=== PATIENT | male | born 1995 | race African-American/Black ===

== ENCOUNTER 2020-11-22 15:39 | Inpatient (IN) | payer MEDICAID ==
[~2020-11-22] VITALS: Ht 190.5 cm; Wt 79.4 kg
[~2020-11-22 15:39] MED LIST: BENZ1TAB10 PO; DIVA-112 PO; OLAN5TAB52 PO
[2020-11-22] MEDS ORDERED: HALOPERIDOL 5 MG TABLET PO ONE (17:45)
[2020-11-22] MEDS ORDERED: LORazepam 1 MG TABLET PO ONE (17:45)
[2020-11-22 18:22] LABS: BASOPHILS % (AUTO) 0.5 % (0.0-2.0); EOSINOPHILS % (AUTO) 1.7 % (1.0-6.0); HEMATOCRIT 38.1 % (41-53); HEMOGLOBIN 12.8 g/dL (13.5-17.5); LYMPHOCYTES # (AUTO) 1.3 K/uL (1.0-4.8); LYMPHOCYTES % (AUTO) 19.7 % (22.0-44.0); MEAN CORPUSCULAR HEMOGLOBIN 29.1 pg (26.0-34.0); MEAN CORPUSCULAR HGB CONC 33.7 G/dL (31.0-37.0); MEAN CORPUSCULAR VOLUME 86 fL (80-100); MONOCYTES # (AUTO) 1.3 K/uL (0.1-1.0); MONOCYTES % (AUTO) 19.3 % (2.0-9.0); NEUTROPHILS % (AUTO) 58.8 % (40.0-70.0); PLATELET COUNT (AUTO) 226 K/uL (150-450); RED BLOOD CELL COUNT(AUTO) 4.42 MIL/uL (4.50-5.90); RED CELL DISTRIBUTION WIDTH 14.2 % (11.5-14.5)
[2020-11-22 18:24] LABS: COVID AG,FIA SOURCE NASOPHARYNGEAL
[2020-11-22 18:41] LABS: ANION GAP 6 mmol/L (8-16); CALCIUM, TOTAL 8.9 mg/dL (8.8-10.5); CARBON DIOXIDE 28 mmol/L (22-29); CHLORIDE 99 mmol/L (98-107); CREATININE 1.07 mg/dL (0.60-1.30); GLOMERULAR FILTR. RATE CALC > 60 mL/min (>60); GLUCOSE,RANDOM 105 mg/dL (70-110); POTASSIUM 3.5 mmol/L (3.5-5.1); SODIUM SERUM 133 mmol/L (136-145); UREA NITROGEN, BLOOD 20 mg/dL (7-18)
[2020-11-22 18:47] LABS: ALANINE AMINOTRANSFERASE 39 U/L (12-78); ALBUMIN 3.7 g/dL (3.4-5.0); ALKALINE PHOSPHATASE 88 U/L (46-116); ASPARTATE AMINOTRANSFERASE 88 U/L (15-37); BILIRUBIN,TOTAL 0.9 mg/dL (0.1-1.0); TOTAL PROTEIN, SERUM 7.7 g/dL (6.4-8.2); VALPROIC ACID 6 mcg/mL (50-100)
[2020-11-22 19:32] LABS: AMPHET/METH SCREEN,URINE NEGATIVE (NEGATIVE); BARBITURATE SCREEN, URINE NEGATIVE (NEGATIVE); BENZODIAZEPINES SCREEN,URINE NEGATIVE (NEGATIVE); CANNABINOID SCREEN,URINE POSITIVE (NEGATIVE); COCAINE SCREEN,URINE NEGATIVE (NEGATIVE); METHADONE SCREEN, URINE NEGATIVE (NEGATIVE); OPIATE SCREEN,URINE NEGATIVE (NEGATIVE)
[2020-11-22 19:33] LABS: PHENCYCLIDINE SCREEN,URINE NEGATIVE (NEGATIVE)
[2020-11-23 02:24] VITALS: BP 133/85
[2020-11-23] MEDS ORDERED: DiphenhydrAMINE HCL 50 MG/ML VIAL IM ONE ×2 (07:30→16:30)
[2020-11-23] MEDS ORDERED: LORazepam 2 MG/ML VIAL IM ONE ×2 (07:30→16:30)
[2020-11-23] MEDS ORDERED: HALOPERIDOL LACTATE 5 MG/ML VIAL IM ONE ×2 (07:30→16:30)
[2020-11-23] MEDS ORDERED: HydrOXYzine PAMOATE 50 MG CAPSULE PO PRN (07:45)
[2020-11-23] MEDS ORDERED: TUBERCULIN, PURIFIED PROTEIN DERIVATIVE 5 TU/0.1 ML SYRINGE ID ONE (07:45)
[2020-11-23] MEDS ORDERED: PROMETHAZINE HCL 25 MG TABLET PO PRN (07:45)
[2020-11-23] MEDS ORDERED: MAGNESIUM HYDROXIDE SUSPENSION 30 ML UDCUP PO PRN (07:45)
[2020-11-23] MEDS ORDERED: ACETAMINOPHEN 325 MG TABLET PO PRN (07:45)
[2020-11-23] MEDS ORDERED: LOPERAMIDE HCL 2 MG CAPSULE PO PRN (07:45)
[2020-11-23] MEDS ORDERED: MAG HYDROX/AL HYDROX/SIMETH ES 30 ML SUSPENSION UDCUP PO PRN (07:45)
[2020-11-23] MEDS ORDERED: GuaiFENesin/D-METHORPHAN [SUGAR-FREE] 200-20MG/10 ML SYRUP UDCUP PO PRN (07:45)
[2020-11-23] MEDS: LORazepam 2 MG TABLET PO PRN (08:00)
[2020-11-23] MEDS: MULTIVITAMINS WITH MINERALS, THERAPEUTIC TABLET PO SCH (09:06)
[2020-11-23] MEDS: FOLIC ACID 1 MG TABLET PO SCH (09:06)
[2020-11-23] MEDS: OLANZapine 5 MG RAPDIS TABLET PO SCH ×3 (09:06→17:00)
[2020-11-23] MEDS: NALTREXONE HCL 50 MG TABLET PO SCH (09:06)
[2020-11-23] MEDS: DIVALPROEX SODIUM 500 MG ER TABLET PO SCH ×3 (09:06→17:00)
[2020-11-23] MEDS: OMEGA-3/DHA/EPA/FISH OIL 1,000 MG CAPSULE PO SCH (09:06)
[2020-11-23] MEDS: THIAMINE 100 MG TABLET PO SCH ×2 (09:06→17:00)
[2020-11-23 16:15] VITALS: BP 150/88
[2020-11-23] MEDS: MELATONIN 5 MG TABLET PO SCH (21:12)
[2020-11-24 05:27] VITALS: BP 124/84
[2020-11-24 08:42] VITALS: BP 145/81
[2020-11-24] MEDS: DIVALPROEX SODIUM 500 MG ER TABLET PO SCH ×3 (08:55→17:25)
[2020-11-24] MEDS: OMEGA-3/DHA/EPA/FISH OIL 1,000 MG CAPSULE PO SCH (08:55)
[2020-11-24] MEDS: FOLIC ACID 1 MG TABLET PO SCH (08:55)
[2020-11-24] MEDS: THIAMINE 100 MG TABLET PO SCH ×2 (08:56→17:25)
[2020-11-24] MEDS: NALTREXONE HCL 50 MG TABLET PO SCH (08:56)
[2020-11-24] MEDS: MULTIVITAMINS WITH MINERALS, THERAPEUTIC TABLET PO SCH (08:56)
[2020-11-24] MEDS: OLANZapine 5 MG RAPDIS TABLET PO SCH ×3 (08:56→17:25)
[2020-11-24] MEDS ORDERED: HALOPERIDOL LACTATE 5 MG/ML VIAL IM ONE (11:00)
[2020-11-24] MEDS ORDERED: LORazepam 2 MG/ML VIAL IM ONE (11:00)
[2020-11-24] MEDS ORDERED: DiphenhydrAMINE HCL 50 MG/ML VIAL IM ONE (11:00)
[2020-11-24] MEDS ORDERED: PALIPERIDONE PALMITATE 234 MG/1.5 ML SYRINGE IM ONE (16:00)
[2020-11-24 16:14] VITALS: BP 122/80
[2020-11-24] MEDS: MELATONIN 5 MG TABLET PO SCH (19:08)
[2020-11-25] MEDS ORDERED: LORazepam 2 MG/ML VIAL IM ONE (08:00)
[2020-11-25] MEDS ORDERED: DiphenhydrAMINE HCL 50 MG/ML VIAL IM ONE (08:00)
[2020-11-25] MEDS ORDERED: HALOPERIDOL LACTATE 5 MG/ML VIAL IM ONE (08:00)
[2020-11-25] MEDS: NALTREXONE HCL 50 MG TABLET PO SCH (09:00)
[2020-11-25] MEDS: OMEGA-3/DHA/EPA/FISH OIL 1,000 MG CAPSULE PO SCH (09:00)
[2020-11-25] MEDS: OLANZapine 5 MG RAPDIS TABLET PO SCH ×4 (09:00→16:40)
[2020-11-25] MEDS: THIAMINE 100 MG TABLET PO SCH ×2 (09:00→16:40)
[2020-11-25] MEDS: MULTIVITAMINS WITH MINERALS, THERAPEUTIC TABLET PO SCH (09:00)
[2020-11-25] MEDS: DIVALPROEX SODIUM 500 MG ER TABLET PO SCH ×5 (09:00→20:35)
[2020-11-25] MEDS: FOLIC ACID 1 MG TABLET PO SCH (09:00)
[2020-11-25 09:49] VITALS: BP 155/97
[2020-11-25 16:19] VITALS: BP 134/79
[2020-11-25] MEDS: LORazepam 2 MG TABLET PO PRN ×2 (16:40→20:43)
[2020-11-25] MEDS: OLANZapine 5 MG RAPDIS TABLET PO PRN (16:40)
[2020-11-25] MEDS: MELATONIN 5 MG TABLET PO SCH (20:35)
[2020-11-25] MEDS: ZOLPIDEM TARTRATE 10 MG TABLET PO PRN (20:35)
[2020-11-25] MEDS: OLANZapine 10 MG RAPDIS TABLET PO SCH (20:37)
[2020-11-26 01:54] VITALS: BP 137/87
[2020-11-26 08:15] VITALS: BP 129/78
[2020-11-26] MEDS: THIAMINE 100 MG TABLET PO SCH ×2 (09:00→16:30)
[2020-11-26] MEDS: MULTIVITAMINS WITH MINERALS, THERAPEUTIC TABLET PO SCH (09:00)
[2020-11-26] MEDS: OMEGA-3/DHA/EPA/FISH OIL 1,000 MG CAPSULE PO SCH (09:00)
[2020-11-26] MEDS: FOLIC ACID 1 MG TABLET PO SCH (09:00)
[2020-11-26] MEDS: NALTREXONE HCL 50 MG TABLET PO SCH (09:00)
[2020-11-26] MEDS ORDERED: PALIPERIDONE PALMITATE 234 MG/1.5 ML SYRINGE IM ONE (15:45)
[2020-11-26] MEDS ORDERED: DiphenhydrAMINE HCL 50 MG/ML VIAL IM ONE (16:15)
[2020-11-26] MEDS ORDERED: HALOPERIDOL LACTATE 5 MG/ML VIAL IM ONE (16:15)
[2020-11-26] MEDS ORDERED: LORazepam 2 MG/ML VIAL IM ONE (16:15)
[2020-11-26 16:19] VITALS: BP 158/85
[2020-11-26 16:59] VITALS: BP 141/80
[2020-11-26] MEDS: DIVALPROEX SODIUM 500 MG ER TABLET PO SCH (20:36)
[2020-11-26] MEDS: OLANZapine 10 MG RAPDIS TABLET PO SCH (20:36)
[2020-11-26] MEDS: MELATONIN 5 MG TABLET PO SCH (20:36)
[2020-11-27] MEDS: NALTREXONE HCL 50 MG TABLET PO SCH (09:00)
[2020-11-27] MEDS: MULTIVITAMINS WITH MINERALS, THERAPEUTIC TABLET PO SCH (09:00)
[2020-11-27] MEDS: FOLIC ACID 1 MG TABLET PO SCH (09:00)
[2020-11-27] MEDS: THIAMINE 100 MG TABLET PO SCH ×2 (09:00→16:39)
[2020-11-27] MEDS: OMEGA-3/DHA/EPA/FISH OIL 1,000 MG CAPSULE PO SCH (09:00)
[2020-11-27 10:10] VITALS: BP 110/80
[2020-11-27] MEDS ORDERED: HALOPERIDOL LACTATE 5 MG/ML VIAL IM ONE (15:45)
[2020-11-27] MEDS ORDERED: LORazepam 2 MG/ML VIAL IM ONE (15:45)
[2020-11-27] MEDS ORDERED: DiphenhydrAMINE HCL 50 MG/ML VIAL IM ONE (15:45)
[2020-11-27] MEDS ORDERED: DiphenhydrAMINE HCL 50 MG/ML VIAL ONE (15:47)
[2020-11-27] MEDS ORDERED: HALOPERIDOL LACTATE 5 MG/ML VIAL ONE (15:47)
[2020-11-27] MEDS ORDERED: LORazepam 2 MG/ML VIAL ONE (15:47)
[2020-11-27] MEDS: DIVALPROEX SODIUM 500 MG ER TABLET PO SCH (19:45)
[2020-11-27] MEDS: MELATONIN 5 MG TABLET PO SCH (19:45)
[2020-11-27] MEDS: OLANZapine 10 MG RAPDIS TABLET PO SCH (19:46)
[2020-11-28 04:46] VITALS: BP 122/82
[2020-11-28] MEDS ORDERED: PALIPERIDONE PALMITATE 156 MG/ML SYRINGE IM ONE (09:00)
[2020-11-28] MEDS: THIAMINE 100 MG TABLET PO SCH ×2 (09:00→16:46)
[2020-11-28] MEDS: FOLIC ACID 1 MG TABLET PO SCH (09:00)
[2020-11-28] MEDS: NALTREXONE HCL 50 MG TABLET PO SCH (09:00)
[2020-11-28] MEDS: MULTIVITAMINS WITH MINERALS, THERAPEUTIC TABLET PO SCH (09:00)
[2020-11-28] MEDS: OMEGA-3/DHA/EPA/FISH OIL 1,000 MG CAPSULE PO SCH (09:00)
[2020-11-28 16:07] VITALS: BP 122/75
[2020-11-28] MEDS: OLANZapine 5 MG RAPDIS TABLET PO PRN (16:46)
[2020-11-28] MEDS: LORazepam 2 MG TABLET PO PRN ×2 (16:46→21:34)
[2020-11-28] MEDS: MELATONIN 5 MG TABLET PO SCH (21:33)
[2020-11-28] MEDS: OLANZapine 10 MG RAPDIS TABLET PO SCH (21:33)
[2020-11-28] MEDS: DIVALPROEX SODIUM 500 MG ER TABLET PO SCH (21:33)
[2020-11-28] MEDS: ZOLPIDEM TARTRATE 10 MG TABLET PO PRN (21:46)
[2020-11-29 04:00] VITALS: BP 123/67
[2020-11-29 08:17] VITALS: BP 128/88
[2020-11-29] MEDS: OMEGA-3/DHA/EPA/FISH OIL 1,000 MG CAPSULE PO SCH (08:57)
[2020-11-29] MEDS: FOLIC ACID 1 MG TABLET PO SCH (08:57)
[2020-11-29] MEDS: NALTREXONE HCL 50 MG TABLET PO SCH (08:58)
[2020-11-29] MEDS: MULTIVITAMINS WITH MINERALS, THERAPEUTIC TABLET PO SCH (08:58)
[2020-11-29] MEDS: THIAMINE 100 MG TABLET PO SCH ×2 (08:58→16:08)
[2020-11-29] MEDS ORDERED: MELA5TAB3 PO (15:30)
[2020-11-29] MEDS ORDERED: OMEG-135 PO (15:30)
[2020-11-29] MEDS ORDERED: NALT50TA PO (15:30)
[2020-11-29] MEDS ORDERED: OLAN10TA26 PO ×2 (15:30→17:28)
[2020-11-29] MEDS ORDERED: DIVA-80 PO ×3 (15:30→19:00)
[2020-11-29 16:10] VITALS: BP 127/78
[2020-11-29] MEDS ORDERED: MELA5TAB21 PO (17:29)
[2020-11-29] MEDS ORDERED: BENZ1TAB10 PO (19:00)
[2020-11-29] MEDS ORDERED: OLAN10TA74 PO (19:01)
[2020-11-30] MEDS ORDERED: PALIPERIDONE PALMITATE 156 MG/ML SYRINGE IM ONE (09:00)
== END 2020-11-29 19:05 | disposition home or self-care (01) | DRG 750 ==
LOC: EMS 15:39 → B3A 21:00
PROVIDERS: ADMIT Psychiatry & Neurology Psychiatry; ATTEND Psychiatry & Neurology Psychiatry
DX: F20.9 Schizophrenia, unspecified (principal); E87.1 Hypo-osmolality and hyponatremia; D64.9 Anemia, unspecified; F12.10 Cannabis abuse, uncomplicated; J44.9 Chronic obstructive pulmonary disease, unspecified; Z55.9 Problems related to education and literacy, unspecified; Z59.9 Problem related to housing and economic circumstances, unspecified; Z65.3 Problems related to other legal circumstances; Z20.822 Contact with and (suspected) exposure to COVID-19
CPT/HCPCS: 80053; 80164; 85025; 99285; A9575; G0480; J1200; J1630; J2060

== ENCOUNTER 2021-01-18 16:42 | Inpatient (IN) | payer SELFPAY ==
[~2021-01-18] VITALS: Ht 188 cm; Wt 84.0 kg
[~2021-01-18 16:42] MED LIST changes: -DIVA-112 PO; +DIVA-80 PO; +MELA5TAB21 PO; +OLAN10TA26 PO; +OLAN10TA74 PO; -OLAN5TAB52 PO
[2021-01-18] MEDS ORDERED: HALOPERIDOL LACTATE 5 MG/ML VIAL IM ONE ×2 (18:00→23:45)
[2021-01-18] MEDS ORDERED: LORazepam 2 MG/ML VIAL IM ONE ×2 (18:00→23:45)
[2021-01-18] MEDS ORDERED: DiphenhydrAMINE HCL 50 MG/ML VIAL IM ONE ×2 (18:00→23:45)
[2021-01-18 18:22] LABS: COVID AG,FIA SOURCE NASOPHARYNGEAL
[2021-01-18] MEDS ORDERED: PIPERACILLIN/TAZO 3.375 GM/D5W 50 ML IV ONE (19:00)
[2021-01-18] MEDS ORDERED: VANCOMYCIN HCL 1 GM/D5% WATER 200 ML IV ONE (19:00)
[2021-01-18] MEDS ORDERED: AZITHROMYCIN 500 MG/NS 250 ML IV ONE (19:00)
[2021-01-18 19:38] LABS: BASOPHILS % (AUTO) 0.3 % (0.0-2.0); EOSINOPHILS % (AUTO) 1.1 % (1.0-6.0); HEMATOCRIT 45.2 % (41-53); LYMPHOCYTES # (AUTO) 1.3 K/uL (1.0-4.8); LYMPHOCYTES % (AUTO) 21.1 % (22.0-44.0); MEAN CORPUSCULAR HEMOGLOBIN 29.1 pg (26.0-34.0); MEAN CORPUSCULAR HGB CONC 33.3 G/dL (31.0-37.0); MEAN CORPUSCULAR VOLUME 87 fL (80-100); MONOCYTES # (AUTO) 0.7 K/uL (0.1-1.0); MONOCYTES % (AUTO) 11.3 % (2.0-9.0); NEUTROPHILS # (AUTO) 4.1 K/uL (1.8-7.7); NEUTROPHILS % (AUTO) 66.2 % (40.0-70.0); PLATELET COUNT (AUTO) 262 K/uL (150-450); RED BLOOD CELL COUNT(AUTO) 5.17 MIL/uL (4.50-5.90); RED CELL DISTRIBUTION WIDTH 13.4 % (11.5-14.5)
[2021-01-18 20:05] LABS: ANION GAP 11 mmol/L (8-16); CALCIUM, TOTAL 9.3 mg/dL (8.8-10.5); CARBON DIOXIDE 28 mmol/L (22-29); CHLORIDE 102 mmol/L (98-107); CREATININE 1.16 mg/dL (0.60-1.30); GLOMERULAR FILTR. RATE CALC > 60 mL/min (>60); GLUCOSE,RANDOM 67 mg/dL (70-110); POTASSIUM 4.1 mmol/L (3.5-5.1); SODIUM SERUM 141 mmol/L (136-145); UREA NITROGEN, BLOOD 14 mg/dL (7-18)
[2021-01-18 20:11] LABS: ALANINE AMINOTRANSFERASE 42 U/L (12-78); ALBUMIN 4.2 g/dL (3.4-5.0); ALKALINE PHOSPHATASE 93 U/L (46-116); ASPARTATE AMINOTRANSFERASE 67 U/L (15-37); BILIRUBIN,TOTAL 0.7 mg/dL (0.1-1.0); TOTAL PROTEIN, SERUM 8.6 g/dL (6.4-8.2)
[2021-01-18 23:51] LABS: AMPHET/METH SCREEN,URINE NEGATIVE (NEGATIVE); BARBITURATE SCREEN, URINE NEGATIVE (NEGATIVE); BENZODIAZEPINES SCREEN,URINE NEGATIVE (NEGATIVE); CANNABINOID SCREEN,URINE POSITIVE (NEGATIVE); COCAINE SCREEN,URINE NEGATIVE (NEGATIVE); METHADONE SCREEN, URINE NEGATIVE (NEGATIVE); OPIATE SCREEN,URINE NEGATIVE (NEGATIVE)
[2021-01-18 23:56] LABS: PHENCYCLIDINE SCREEN,URINE NEGATIVE (NEGATIVE)
[2021-01-19] MEDS: LORazepam 2 MG TABLET PO PRN ×3 (00:58→20:16)
[2021-01-19] MEDS: ZOLPIDEM TARTRATE 10 MG TABLET PO PRN (00:58)
[2021-01-19] MEDS: QUEtiapine FUMARATE 100 MG TABLET PO PRN ×2 (07:38→19:06)
[2021-01-19 08:15] VITALS: BP 138/76
[2021-01-19] MEDS ORDERED: LOPERAMIDE HCL 2 MG CAPSULE PO PRN (08:30)
[2021-01-19] MEDS ORDERED: DOCUSATE SODIUM 100 MG CAPSULE PO PRN (08:30)
[2021-01-19] MEDS ORDERED: ONDANSETRON HCL 4 MG TABLET PO PRN (08:30)
[2021-01-19] MEDS ORDERED: PETROLATUM,WHITE 28 GM JELLY TP PRN (08:30)
[2021-01-19] MEDS ORDERED: CloNIDine HCL 0.1 MG TABLET PO PRN (08:30)
[2021-01-19] MEDS ORDERED: IBUPROFEN 400 MG TABLET PO PRN (08:30)
[2021-01-19] MEDS ORDERED: ACETAMINOPHEN 325 MG TABLET PO PRN (08:30)
[2021-01-19] MEDS ORDERED: GuaiFENesin/D-METHORPHAN [SUGAR-FREE] 200-20MG/10 ML SYRUP UDCUP PO PRN (08:30)
[2021-01-19] MEDS ORDERED: ALBUTEROL SULFATE HFA 90 MCG/PUFF 8 GM INHALER IH PRN (08:30)
[2021-01-19] MEDS ORDERED: MAG HYDROX/AL HYDROX/SIMETH ES 30 ML SUSPENSION UDCUP PO PRN (08:30)
[2021-01-19] MEDS ORDERED: MAGNESIUM HYDROXIDE SUSPENSION 30 ML UDCUP PO PRN (08:30)
[2021-01-19] MEDS ORDERED: NICOTINE 14 MG/24 HOUR PATCH TD PRN (08:30)
[2021-01-19] MEDS: OLANZapine 10 MG TABLET PO SCH ×2 (11:43→20:06)
[2021-01-19 14:00] LABS: CHOL/HDL RATIO 1.8 (4.2-7.3)
[2021-01-19] MEDS: DIVALPROEX SODIUM 250 MG ER TABLET PO SCH (20:06)
[2021-01-19] MEDS: MELATONIN 5 MG TABLET PO SCH (20:06)
[2021-01-20] MEDS: QUEtiapine FUMARATE 100 MG TABLET PO PRN ×2 (05:41→15:39)
[2021-01-20] MEDS: LORazepam 2 MG TABLET PO PRN ×3 (05:41→20:15)
[2021-01-20 08:11] VITALS: BP 119/78
[2021-01-20] MEDS: OLANZapine 10 MG TABLET PO SCH ×2 (09:10→20:15)
[2021-01-20] MEDS: DIVALPROEX SODIUM 250 MG ER TABLET PO SCH ×2 (09:11→20:14)
[2021-01-20 16:06] VITALS: BP 135/85
[2021-01-20] MEDS: MELATONIN 5 MG TABLET PO SCH (20:15)
[2021-01-21] MEDS: QUEtiapine FUMARATE 100 MG TABLET PO PRN (05:58)
[2021-01-21] MEDS: LORazepam 2 MG TABLET PO PRN ×2 (05:58→16:30)
[2021-01-21] MEDS: DIVALPROEX SODIUM 250 MG ER TABLET PO SCH ×2 (07:34→21:42)
[2021-01-21] MEDS: OLANZapine 10 MG TABLET PO SCH ×2 (07:34→21:59)
[2021-01-21 08:09] VITALS: BP 139/88
[2021-01-21] MEDS: MELATONIN 5 MG TABLET PO SCH (20:11)
[2021-01-21] MEDS: ZOLPIDEM TARTRATE 10 MG TABLET PO PRN (23:24)
[2021-01-22] MEDS: LORazepam 2 MG TABLET PO PRN (05:37)
[2021-01-22] MEDS: QUEtiapine FUMARATE 100 MG TABLET PO PRN (05:37)
[2021-01-22] MEDS: OLANZapine 10 MG TABLET PO SCH (07:33)
[2021-01-22] MEDS: DIVALPROEX SODIUM 250 MG ER TABLET PO SCH (07:33)
[2021-01-22 08:23] VITALS: BP 144/81
== END 2021-01-22 13:30 | disposition home or self-care (01) | DRG 885 ==
LOC: EMS 16:42 → 3EC 19:48
DX: F20.0 Paranoid schizophrenia (principal); F12.10 Cannabis abuse, uncomplicated; D64.9 Anemia, unspecified; G47.00 Insomnia, unspecified; Z79.899 Other long term (current) drug therapy; Z20.822 Contact with and (suspected) exposure to COVID-19; R03.0 Elevated blood-pressure reading, without diagnosis of hypertension
CPT/HCPCS: 80053; 80061; 85025; 99285; A9575; G0480; J1200; J1630; J2060; J3370

== ENCOUNTER 2021-02-08 14:24 | Emergency (ER) | payer MEDICAID ==
[~2021-02-08] VITALS: Ht 180.3 cm; Wt 81.8 kg
[~2021-02-08 14:24] MED LIST changes: -BENZ1TAB10 PO; -OLAN10TA26 PO
[2021-02-08 16:19] LABS: BASOPHILS % (AUTO) 0.3 % (0.0-2.0); EOSINOPHILS % (AUTO) 1.4 % (1.0-6.0); HEMATOCRIT 43.5 % (41-53); HEMOGLOBIN 14.6 g/dL (13.5-17.5); LYMPHOCYTES # (AUTO) 1.5 K/uL (1.0-4.8); LYMPHOCYTES % (AUTO) 24.3 % (22.0-44.0); MEAN CORPUSCULAR HEMOGLOBIN 28.4 pg (26.0-34.0); MEAN CORPUSCULAR HGB CONC 33.4 G/dL (31.0-37.0); MEAN CORPUSCULAR VOLUME 85 fL (80-100); MONOCYTES # (AUTO) 0.9 K/uL (0.1-1.0); MONOCYTES % (AUTO) 13.8 % (2.0-9.0); NEUTROPHILS # (AUTO) 3.8 K/uL (1.8-7.7); NEUTROPHILS % (AUTO) 60.2 % (40.0-70.0); PLATELET COUNT (AUTO) 302 K/uL (150-450); RED BLOOD CELL COUNT(AUTO) 5.12 MIL/uL (4.50-5.90); RED CELL DISTRIBUTION WIDTH 12.9 % (11.5-14.5)
[2021-02-08 16:20] LABS: COVID AG,FIA SOURCE NASOPHARYNGEAL
[2021-02-08 16:38] LABS: ANION GAP 9 mmol/L (8-16); CALCIUM, TOTAL 9.4 mg/dL (8.8-10.5); CARBON DIOXIDE 30 mmol/L (22-29); CHLORIDE 102 mmol/L (98-107); CREATININE 1.31 mg/dL (0.60-1.30); GLOMERULAR FILTR. RATE CALC > 60 mL/min (>60); GLUCOSE,RANDOM 84 mg/dL (70-110); POTASSIUM 4.4 mmol/L (3.5-5.1); SODIUM SERUM 141 mmol/L (136-145); UREA NITROGEN, BLOOD 17 mg/dL (7-18)
[2021-02-08 16:41] LABS: ALANINE AMINOTRANSFERASE 35 U/L (12-78); ALBUMIN 4.1 g/dL (3.4-5.0); ALKALINE PHOSPHATASE 90 U/L (46-116); ASPARTATE AMINOTRANSFERASE 45 U/L (15-37); BILIRUBIN,TOTAL 0.4 mg/dL (0.1-1.0); TOTAL PROTEIN, SERUM 8.6 g/dL (6.4-8.2)
[2021-02-08] MEDS ORDERED: DIVA-85 PO (20:06)
[2021-02-08] MEDS ORDERED: ZOLPIDEM TARTRATE 10 MG TABLET PO PRN (20:15)
[2021-02-08] MEDS ORDERED: HALOPERIDOL 5 MG TABLET PO PRN (20:15)
[2021-02-08] MEDS ORDERED: LORazepam 2 MG TABLET PO PRN (20:15)
[2021-02-08 20:23] LABS: APPEARANCE,URINE CLOUDY (CLEAR); BILIRUBIN,URINE NEGATIVE (NEGATIVE); GLUCOSE, URINE (UA) NEGATIVE (NEGATIVE); KETONES,URINE NEGATIVE (NEGATIVE); LEUKOCYTE ESTERASE ,URINE NEGATIVE (NEGATIVE); NITRATE,URINE NEGATIVE (NEGATIVE); OCCULT BLOOD,URINE NEGATIVE (NEGATIVE); PROTEIN,URINE NEGATIVE (NEGATIVE); UROBILINOGEN,URINE 0.2 mg/dL (<=1.0)
[2021-02-08 20:33] LABS: AMPHET/METH SCREEN,URINE NEGATIVE (NEGATIVE); BARBITURATE SCREEN, URINE NEGATIVE (NEGATIVE); BENZODIAZEPINES SCREEN,URINE NEGATIVE (NEGATIVE); CANNABINOID SCREEN,URINE POSITIVE (NEGATIVE); COCAINE SCREEN,URINE NEGATIVE (NEGATIVE); METHADONE SCREEN, URINE NEGATIVE (NEGATIVE); OPIATE SCREEN,URINE NEGATIVE (NEGATIVE)
[2021-02-08 20:35] LABS: PHENCYCLIDINE SCREEN,URINE NEGATIVE (NEGATIVE)
[2021-02-09 08:54] LABS: CHOL/HDL RATIO 2.5 (4.2-7.3)
[2021-02-09 11:39] VITALS: BP 123/83
== END 2021-02-09 14:16 | disposition home or self-care (01) ==
LOC: EMS 14:27
DX: F20.9 Schizophrenia, unspecified (principal); Z79.899 Other long term (current) drug therapy; Z20.822 Contact with and (suspected) exposure to COVID-19
CPT/HCPCS: 36415; 80053; 80061; 80307; 81003; 85025; 87426; 99285; G0480

== ENCOUNTER 2024-12-20 13:08 | Inpatient (IN) | payer MEDICAID ==
[~2024-12-20] VITALS: Ht 190.5 cm; Wt 83.0 kg
[~2024-12-20 13:08] MED LIST changes: -DIVA-80 PO; +DIVA-85 PO
[2024-12-20 13:59] LABS: PLATELET COUNT (AUTO) 244 K/uL (150-450); RED BLOOD CELL COUNT(AUTO) 4.98 MIL/uL (4.50-5.90); RED CELL DISTRIBUTION WIDTH 12.8 % (11.5-14.5); WHITE BLOOD COUNT (AUTO) 3.9 K/uL (4.5-11.0)
[2024-12-20 14:04] LABS: CALCIUM, TOTAL 8.9 mg/dL (8.8-10.5); CREATININE 1.26 mg/dL (0.60-1.30); GLOMERULAR FILTR. RATE CALC > 60 mL/min (>60); GLUCOSE,RANDOM 84 mg/dL (70-110); SODIUM SERUM 141 mmol/L (136-145); UREA NITROGEN, BLOOD 12 mg/dL (7-18)
[2024-12-20] MEDS ORDERED: ZOLPIDEM TARTRATE 10 MG TABLET PO PRN (14:15)
[2024-12-20] MEDS: ACETAMINOPHEN 500 MG TABLET PO ONE (14:18)
[2024-12-20 16:42] LABS: COVID AG,FIA SOURCE NASAL SWAB
[2024-12-20 17:01] LABS: SARS-COV2 (COVID) ANTIGEN,FIA Negative (Negative)
[2024-12-20 18:31] LABS: APPEARANCE,URINE CLEAR (CLEAR); GLUCOSE, URINE (UA) NEGATIVE (NEGATIVE); LEUKOCYTE ESTERASE ,URINE NEGATIVE (NEGATIVE); NITRATE,URINE NEGATIVE (NEGATIVE); OCCULT BLOOD,URINE NEGATIVE (NEGATIVE); PH,URINE DRUG SCREEN 6.0 (5.0-8.0); SPECIFIC GRAVITIY, URINE 1.029 (1.003-1.030)
[2024-12-20 18:37] LABS: ALCOHOL, URINE DRUG SCREEN NEGATIVE (NEGATIVE); AMPHET/METH SCREEN,URINE NEGATIVE (NEGATIVE); BARBITURATE SCREEN, URINE NEGATIVE (NEGATIVE); CANNABINOID SCREEN,URINE POSITIVE (NEGATIVE); COCAINE SCREEN,URINE NEGATIVE (NEGATIVE); METHADONE SCREEN, URINE NEGATIVE (NEGATIVE)
[2024-12-20 18:57] VITALS: O2SAT 99
[2024-12-20] MEDS: ACETAMINOPHEN 325 MG TABLET PO ONE (19:28)
[2024-12-20 22:09] VITALS: BP 115/75; PULSE 63; RESP 17; TEMP 98.7; O2SAT 99
[2024-12-21 08:02] VITALS: BP 113/74; PULSE 84; RESP 18; TEMP 98.3; O2SAT 99
[2024-12-21] MEDS ORDERED: OMEPRAZOLE 20 MG CAPSULE PO PRN (08:45)
[2024-12-21] MEDS ORDERED: BACITRACIN 28 GM OINTMENT TP PRN (08:45)
[2024-12-21] MEDS ORDERED: BENZOCAINE/MENTHOL [CEPACOL] LOZENGE PO PRN (08:45)
[2024-12-21] MEDS ORDERED: ALBUTEROL SULFATE HFA 90 MCG/PUFF 8 GM INHALER IH PRN (08:45)
[2024-12-21] MEDS ORDERED: LOPERAMIDE HCL 2 MG CAPSULE PO PRN (08:45)
[2024-12-21] MEDS ORDERED: ONDANSETRON 4 MG TABLET PO PRN (08:45)
[2024-12-21] MEDS ORDERED: ACETAMINOPHEN 325 MG TABLET PO PRN (08:45)
[2024-12-21] MEDS ORDERED: MAGNESIUM HYDROXIDE SUSPENSION 30 ML UDCUP PO PRN (08:45)
[2024-12-21] MEDS ORDERED: PETROLATUM,WHITE 28 GM JELLY TP PRN (08:45)
[2024-12-21] MEDS ORDERED: DOCUSATE SODIUM 100 MG CAPSULE PO PRN (08:45)
[2024-12-21] MEDS: SODIUM POLYSTYRENE SULFONATE 15 GM/60 ML SUSPENSION BOTTLE PO ONE (12:03)
[2024-12-21 20:09] VITALS: BP 124/81; PULSE 64; RESP 19; TEMP 97.8; O2SAT 100
[2024-12-22] MEDS: IBUPROFEN 600 MG TABLET PO PRN (06:46)
[2024-12-22 06:48] VITALS: RESP 20
[2024-12-22 08:53] VITALS: BP 125/82; PULSE 71; RESP 18; TEMP 97.2; O2SAT 96
[2024-12-22 20:38] VITALS: BP 125/74; PULSE 70; RESP 17; TEMP 98.4; O2SAT 98
[2024-12-23] MEDS: MAG HYDROX/ALUMINUM HYD/SIMETH ES 30 ML SUSPENSION UDCUP PO PRN (03:32)
[2024-12-23 08:21] VITALS: BP 151/85; PULSE 74; RESP 18; TEMP 97.7; O2SAT 100
[2024-12-23 20:11] VITALS: BP 121/76; PULSE 63; RESP 18; TEMP 97.6; O2SAT 100
[2024-12-24 02:16] VITALS: BP 110/82; PULSE 64; RESP 18; O2SAT 100
[2024-12-24] MEDS ORDERED: QUET300T2 PO (07:50)
[2024-12-24 08:22] VITALS: BP 124/66; PULSE 76; RESP 18; TEMP 97.3; O2SAT 99
== END 2024-12-24 12:29 | disposition home or self-care (01) | DRG 750 ==
LOC: EMS 13:14 → B3A 20:12
PROVIDERS: ADMIT Psychiatry & Neurology Psychiatry; ATTEND Psychiatry & Neurology Psychiatry
DX: F20.9 Schizophrenia, unspecified (principal); R45.850 Homicidal ideations; E87.5 Hyperkalemia; F41.9 Anxiety disorder, unspecified; F12.90 Cannabis use, unspecified, uncomplicated; G47.00 Insomnia, unspecified; K59.00 Constipation, unspecified; Z20.822 Contact with and (suspected) exposure to COVID-19; Z72.0 Tobacco use
CPT/HCPCS: 80048; 80307; 81003; 85025; G0480

== ENCOUNTER 2025-05-20 13:26 | Inpatient (IN) | payer MEDICAID ==
[2025-05-20] VITALS: BP 130/101; PULSE 82; RESP 18; TEMP 98.5; O2SAT 99
[~2025-05-20 13:26] MED LIST changes: -DIVA-85 PO; -MELA5TAB21 PO; -OLAN10TA74 PO; +PALI234D IM; +QUET300T19 PO
[2025-05-20] MEDS ORDERED: LORazepam 2 MG/ML VIAL IM ONE (14:00)
[2025-05-21] MEDS: ZOLPIDEM TARTRATE 10 MG TABLET PO PRN (00:37)
[2025-05-21 01:39] VITALS: BP 130/101; PULSE 82; RESP 18; TEMP 98.5; O2SAT 99
[2025-05-21] MEDS ORDERED: INFLUENZA VIRUS VACCINE TVS (6MO+) 2025-26/PF 45 MCG/0.5 ML SYRINGE IM. ONE (01:45)
[2025-05-21 02:28] VITALS: BP 130/101; PULSE 82; RESP 18; TEMP 98.5; O2SAT 99
[2025-05-21 08:17] VITALS: BP 111/94; PULSE 96; RESP 18; TEMP 97.3; O2SAT 98
[2025-05-21 08:41] LABS: PLATELET COUNT (AUTO) 239 K/uL (150-450); RED BLOOD CELL COUNT(AUTO) 4.97 MIL/uL (4.50-5.90); RED CELL DISTRIBUTION WIDTH 12.8 % (11.5-14.5); WHITE BLOOD COUNT (AUTO) 4.2 K/uL (4.5-11.0)
[2025-05-21 08:56] LABS: ALCOHOL, BLOOD (SERUM) < 3 mg/dL (0-10)
[2025-05-21 08:59] LABS: ASPARTATE AMINOTRANSFERASE 70 U/L (15-37); CALCIUM, TOTAL 9.2 mg/dL (8.8-10.5); CHOL/HDL RATIO 2.0 (4.2-7.3); CREATININE 1.11 mg/dL (0.60-1.30); GLOMERULAR FILTR. RATE CALC > 60 mL/min (>60); GLUCOSE,RANDOM 139 mg/dL (70-110); LDL CHOL (CALC.) 86 mg/dL (0-130); SODIUM SERUM 139 mmol/L (136-145); TOTAL PROTEIN, SERUM 8.2 g/dL (6.4-8.2); UREA NITROGEN, BLOOD 13 mg/dL (7-18)
[2025-05-21] MEDS ORDERED: OMEPRAZOLE 20 MG CAPSULE PO PRN (09:45)
[2025-05-21] MEDS ORDERED: LOPERAMIDE HCL 2 MG CAPSULE PO PRN (09:45)
[2025-05-21] MEDS ORDERED: ALBUTEROL SULFATE HFA 90 MCG/PUFF 8 GM INHALER IH PRN (09:45)
[2025-05-21] MEDS ORDERED: BACITRACIN 28 GM OINTMENT TP PRN (09:45)
[2025-05-21] MEDS ORDERED: PETROLATUM,WHITE 28 GM JELLY TP PRN (09:45)
[2025-05-21] MEDS ORDERED: ACETAMINOPHEN 325 MG TABLET PO PRN (09:45)
[2025-05-21] MEDS ORDERED: DOCUSATE SODIUM 100 MG CAPSULE PO PRN (09:45)
[2025-05-21] MEDS ORDERED: BENZOCAINE/MENTHOL [CEPACOL] LOZENGE PO PRN (09:45)
[2025-05-21] MEDS: MAG HYDROX/ALUMINUM HYD/SIMETH ES 30 ML SUSPENSION UDCUP PO PRN (10:32)
[2025-05-21 20:30] VITALS: RESP 18
[2025-05-21] MEDS ORDERED: NICOTINE 21 MG/24 HOUR PATCH TD PRN (21:15)
[2025-05-22 08:17] VITALS: BP 129/85; PULSE 82; RESP 18; TEMP 97.1; O2SAT 98
[2025-05-22 09:52] LABS: APPEARANCE,URINE HAZY (CLEAR); GLUCOSE, URINE (UA) NEGATIVE (NEGATIVE); LEUKOCYTE ESTERASE ,URINE NEGATIVE (NEGATIVE); NITRATE,URINE NEGATIVE (NEGATIVE); OCCULT BLOOD,URINE NEGATIVE (NEGATIVE); PH,URINE DRUG SCREEN 6.0 (5.0-8.0); SPECIFIC GRAVITIY, URINE 1.032 (1.003-1.030)
[2025-05-22 10:11] LABS: ALCOHOL, URINE DRUG SCREEN NEGATIVE (NEGATIVE); AMPHET/METH SCREEN,URINE NEGATIVE (NEGATIVE); BARBITURATE SCREEN, URINE NEGATIVE (NEGATIVE); CANNABINOID SCREEN,URINE POSITIVE (NEGATIVE); COCAINE SCREEN,URINE NEGATIVE (NEGATIVE); METHADONE SCREEN, URINE NEGATIVE (NEGATIVE)
[2025-05-22] MEDS: MAGNESIUM HYDROXIDE SUSPENSION 30 ML UDCUP PO PRN (20:07)
[2025-05-22 20:20] VITALS: BP 141/85; PULSE 80; RESP 18; TEMP 97.3; O2SAT 99
[2025-05-23 08:10] VITALS: RESP 17
[2025-05-23 13:08] VITALS: RESP 18; O2SAT 99
[2025-05-23] MEDS: IBUPROFEN 600 MG TABLET PO PRN (13:08)
[2025-05-23 14:08] VITALS: RESP 17
[2025-05-23] MEDS: ONDANSETRON 4 MG TABLET PO PRN (16:37)
[2025-05-23 20:00] VITALS: BP 145/81; PULSE 75; RESP 18; TEMP 98
[2025-05-24 09:00] VITALS: BP 140/90; PULSE 74; RESP 16; TEMP 97.9; O2SAT 99
[2025-05-24] MEDS ORDERED: LORazepam 2 MG/ML VIAL ONE (17:41)
[2025-05-24] MEDS: LORazepam 2 MG/ML VIAL IM ONE (18:22)
[2025-05-24 20:48] VITALS: BP 127/75; PULSE 68; RESP 17; TEMP 97.3; O2SAT 99
[2025-05-25 07:31] VITALS: RESP 16
[2025-05-25 08:31] VITALS: RESP 16
[2025-05-25 08:44] VITALS: BP 134/91; PULSE 78; RESP 18; TEMP 98; O2SAT 99
[2025-05-25 20:12] VITALS: BP 125/86; PULSE 68; RESP 16; TEMP 97; O2SAT 99
[2025-05-26 08:04] VITALS: BP 135/83; PULSE 91; RESP 17; TEMP 97.3; O2SAT 99
[2025-05-26 20:10] VITALS: BP 109/59; PULSE 86; RESP 18; TEMP 96.5; O2SAT 98
[2025-05-27 09:07] VITALS: BP 125/83; PULSE 88; RESP 18; TEMP 97.5; O2SAT 99
== END 2025-05-27 08:55 | disposition home or self-care (01) | DRG 750 ==
LOC: B3A 17:30
PROVIDERS: ADMIT Psychiatry & Neurology Psychiatry; ATTEND Psychiatry & Neurology Psychiatry
PROC: GZHZZZZ Group Psychotherapy (ICD-10-PCS; principal; 2025-05-20)
PROC: GZ51ZZZ Individual Psychotherapy, Behavioral (ICD-10-PCS; 2025-05-20)
DX: F20.0 Paranoid schizophrenia (principal); Z59.00 Homelessness unspecified; F10.10 Alcohol abuse, uncomplicated; F12.20 Cannabis dependence, uncomplicated; G47.00 Insomnia, unspecified; K59.00 Constipation, unspecified; Z79.899 Other long term (current) drug therapy
CPT/HCPCS: 80053; 80061; 80307; 81003; 83036; 84436; 84443; 85025; 86592; 87081; G0480; J1200; J1630; J2060; Q0162

== ENCOUNTER 2025-05-20 15:45 | Emergency (ER) | payer MEDICAID ==
[~2025-05-20] VITALS: Ht 188 cm; Wt 100.0 kg
[2025-05-20 16:08] VITALS: TEMP 98.7
[2025-05-20] MEDS: LORazepam 2 MG/ML VIAL IM ONE (17:29)
[2025-05-20 17:31] LABS: COVID AG,FIA SOURCE NASAL SWAB
[2025-05-20 17:36] LABS: APPEARANCE,URINE CLEAR (CLEAR); GLUCOSE, URINE (UA) NEGATIVE (NEGATIVE); LEUKOCYTE ESTERASE ,URINE NEGATIVE (NEGATIVE); NITRATE,URINE NEGATIVE (NEGATIVE); OCCULT BLOOD,URINE NEGATIVE (NEGATIVE); PH,URINE DRUG SCREEN 5.5 (5.0-8.0); SPECIFIC GRAVITIY, URINE 1.037 (1.003-1.030)
[2025-05-20 17:42] LABS: ALCOHOL, URINE DRUG SCREEN NEGATIVE (NEGATIVE); AMPHET/METH SCREEN,URINE NEGATIVE (NEGATIVE); BARBITURATE SCREEN, URINE NEGATIVE (NEGATIVE); CANNABINOID SCREEN,URINE POSITIVE (NEGATIVE); COCAINE SCREEN,URINE NEGATIVE (NEGATIVE); METHADONE SCREEN, URINE NEGATIVE (NEGATIVE)
[2025-05-20 17:51] LABS: SARS-COV2 (COVID) ANTIGEN,FIA Negative (Negative)
[2025-05-20 21:11] LABS: PLATELET COUNT (AUTO) 238 K/uL (150-450); RED BLOOD CELL COUNT(AUTO) 4.84 MIL/uL (4.50-5.90); RED CELL DISTRIBUTION WIDTH 12.7 % (11.5-14.5); WHITE BLOOD COUNT (AUTO) 5.2 K/uL (4.5-11.0)
[2025-05-20 21:18] LABS: CALCIUM, TOTAL 9.4 mg/dL (8.8-10.5); CREATININE 1.21 mg/dL (0.60-1.30); GLOMERULAR FILTR. RATE CALC > 60 mL/min (>60); GLUCOSE,RANDOM 97 mg/dL (70-110); SODIUM SERUM 138 mmol/L (136-145); UREA NITROGEN, BLOOD 14 mg/dL (7-18)
[2025-05-20 23:22] VITALS: BP 130/93; PULSE 100; RESP 18; O2SAT 98
== END 2025-05-20 23:28 | disposition admitted as inpatient to this hospital (09) ==
LOC: EMS 15:45
DX: F20.9 Schizophrenia, unspecified (principal); F12.129 Cannabis abuse with intoxication, unspecified; Z79.899 Other long term (current) drug therapy; Z20.822 Contact with and (suspected) exposure to COVID-19
CPT/HCPCS: 99285; 87426; 80048; 81003; 85025; 36415; 96372; 80307; G0480; J1200; J1630; J2060